=== PATIENT | female | born 1955 | race Caucasian/White ===

== ENCOUNTER 2016-11-15 17:22 | Inpatient (IN) | payer BC ==
--- NOTE | ~2016-11-15 | CO ---
Unit #: [id number] #: [id number] Patient: LOVE ISABEL [id number] [facility] [address] [place], [place] [address] [id number] I MR#: [id number] NAME: LOVE ISABEL ROOM: [facility] Age: 60 Sex: F Admission Date: 11/17/2016 : 1955 Attending Physician: Yumi Rodrigues M.D. Primary Care Physician: Lucas Ashton CONSULTATION REPORT REASON FOR CONSULTATION Followup. HISTORY OF PRESENT ILLNESS Ms. Ly is a 60-year-old female seen in room 561, bed 1 on 11/23/2016 at [facility]. The patient is sitting comfortably and reports feeling better, decreasing depression and anxiety. Denied any withdrawal from alcohol. The patient was able to eat her breakfast. She denied any suicidal or homicidal ideation. Denied any psychotic symptoms. No side effects form medication. Currently tolerating medication fairly well. The patient's vital signs are stable, 99.8, 96, 20, 106/67. Oxygen saturation 96%. MENTAL STATUS EXAMINATION General appearance, the patient is dressed casually in hospital attire. Thing built. Sitting comfortably in a chair. Attention span and concentration fair. Speech regular rate, coherent. Oriented to time, place and person. Mood and affect labile. Thought process coherent. Thought content, the patient denied any thoughts of harming self or others. No psychotic symptoms. Recent and remote memory fair. Language intact. Fund of knowledge fair. Insight and judgment fair to slightly impaired. DIAGNOSES 1. Psychiatric, major depressive disorder, recurrent, severe. 2. Alcohol use disorder, moderate to severe F10.20. ASSESSMENT/PLAN 1. Supportive psychotherapy, psychoeducation provided to the patient. 2. Educated about the benefits and side effects of the medication and course and prognosis of illness. 3. Advised to continue with current medication. If needed, consider further adjustment of medication. Please feel to call if any questions. Telephone number [phone]. Dictated by... Gavino Angelo M.D. Carlene TD: 11/24/2016 09:26 JOB #: [id number] Unit #: [id number] #: [id number] Patient: LOVE ISABEL CONSULTATION REPORT Page 1 of 1 X Gavino Angelo MD CONSULTATION REPORT
--- NOTE | ~2016-11-15 | CR94 ---
[facility] A Service of [facility] RADIOLOGY TEXT RESULTS PATIENT: LOVE ISABEL LOCATION: [place] [address] : [birth year] UNIT #: [id number] AGE: [address]: Yumi Rodrigues MD SEX: F ORDER DR: [id number] [facility] [address] [facility]. [place], [place] [address] [id number] E MR#: [id number] Acc #: [id number] NAME: LOVE ISABEL : 1955 SEX: F STUDY DATE/TIME: 11/15/2016 18:41 UNIT: LILIANE ROOM: STUDY DESCRIPTION: CR Elbow Min 3 Views Rt Attending Physician: Marcio Izaguirre D.O. Ordering Physician: Marcio Izaguirre D.O. Primary Care Physician: Lucas Ashton MEDICAL IMAGING REPORT This report is preliminary unless electronic signature is present EXAM Right elbow series, 11/15/2016 HISTORY Left and right elbow lacerations, acute pain in left forearm and right elbow. Syncope. FINDINGS AP, lateral, oblique radiographs of the right elbow show diminished bony mineralization. No fracture. No traumatic malalignment. No joint effusion. No soft tissue defect, subcutaneous air or radiodense foreign body. Dictated by... Negro Nielsen M.D. THIS IS AN ELECTRONICALLY VERIFIED REPORT Negro Nielsen M.D. at 11/16/2016 5:57 PM WINSTON/cam TD: 11/15/2016 21:51 JOB #: [id number] MEDICAL IMAGING REPORT Page 1 of 1 COPY
--- NOTE | ~2016-11-15 | CO ---
Unit #: [id number] #: [id number] Patient: ALIYAH PEPPER [id number] [facility] [address] [facility]. [place], [place] [address] [id number] I MR#: [id number] NAME: ALIYAH PEPPER. ROOM: 568 Age: 60 Sex: F Admission Date: 11/16/2016 : 1955 Attending Physician: Yumi Rodrigues M.D. Primary Care Physician: Lucas Ashton Consultation Date: 11/20/2016 CONSULTATION REPORT REASON FOR CONSULTATION Depression, confusion, and alcohol abuse. HISTORY OF PRESENT ILLNESS Ms. Aliyah Pepper is a 60-year-old white female, seen in room 568 on 11/20/2016 at [facility]. The patient was admitted on 11/16/2016 with chief complaint of alcohol use almost on a daily basis and depression. The patient was doing really well initially, alert, oriented, coherent, but in the last 24 hours from withdrawn, flat sad, dysphoric, sleepy, incoherent, confusion, unable to give any reliable information. The patient is thin built and dressed in hospital attire. The patient was not responding to any verbal commands, although able to open her eyes. The patient's abnormal was noted. The patient has been taking her medication p.o., but according to the staff report, the patient is extremely anxious, nervous. The patient is on a CIWA protocol at this time. The patient did not show any agitation or denied any thoughts of harming self or others. Did not respond to the question. The patient seemed somewhat guarded, paranoid. PAST PSYCHIATRIC HISTORY Remarkable for history of depression and history of alcohol abuse. PAST MEDICAL HISTORY History of [id number] mitral valve prolapse, hypertension, COPD, peripheral neuropathy, alcohol abuse, colon cancer, and active smoker. MEDICATIONS The patient is on Remeron, Lyrica, potassium chloride, hydrochlorothiazide, trazodone, multivitamin, and Zoloft. FAMILY HISTORY AND SOCIAL HISTORY The patient has a good support system from family. History of alcohol abuse as mentioned above. No known history of any abuse. REVIEW OF SYSTEMS Complete review of systems is unremarkable except for confusion. MENTAL STATUS EXAMINATION VITAL SIGNS: 98.9, 77, 18, 153/63, oxygen saturation 100%. GENERAL APPEARANCE: The patient dressed in hospital attire, extremely thin built. Speech, minimal. Orientation, unable to assess. Mood and affect, flat. Thought process, incoherent. Thought content, guarded and paranoid. Recent and remote memory, poor. Language, poor. Fund of knowledge, poor. Insight and judgment, impaired. Unit #: [id number] #: [id number] Patient: ALIYAH PEPPER DIAGNOSES Psychiatric: Delirium, F05; alcohol use disorder, moderate to severe, F10.20; major depressive disorder, recurrent, severe, F33.2. Secondary diagnosis: Deferred. Medical diagnosis: Please refer to H and P. Stressors: Psychosocial stressors. ASSESSMENT AND PLAN 1. Supportive psychotherapy and psychoeducation provided to the patient, but the patient unable to comprehend at this time. 2. Recommending at this time to continue with CIWA protocol and antidepressant. Recommending at this time to increase Remeron to 15 mg at bedtime and add Zyprexa 5 mg at bedtime. We will closely monitor. If needed, consider further adjustment of medication. Please feel free to call if any questions, telephone [phone]. Dictated by... Erwin Jay/sae TD: 11/21/2016 13:15 JOB #: [id number] CONSULTATION REPORT Page 1 of 1 X Gavino Angelo MD X CONSULTATION REPORT
--- NOTE | ~2016-11-15 | CR132 ---
[facility] A Service of [facility] RADIOLOGY TEXT RESULTS PATIENT: LOVE ISABEL LOCATION: [place] [address] : [birth year] UNIT #: [id number] AGE: [address]: Yumi Rodrigues MD SEX: F ORDER DR: [id number] [facility] [address] [facility]. [place], [place] [address] [id number] E MR#: [id number] Acc #: [id number] NAME: LOVE ISABEL : 1955 SEX: F STUDY DATE/TIME: 11/15/2016 18:45 UNIT: LILIANE ROOM: STUDY DESCRIPTION: CR Forearm 2 View Lt Attending Physician: Marcio Izaguirre D.O. Ordering Physician: Marcio Izaguirre D.O. Primary Care Physician: Lucas Ashton MEDICAL IMAGING REPORT This report is preliminary unless electronic signature is present EXAM Left forearm series 11/15/2016 HISTORY Left and right elbow lacerations. Acute pain left forearm, right elbow. Syncope, fall today. FINDINGS AP and lateral radiographs of the left radius and ulna are presented. Diminished bony mineralization. Greater than anticipated for patient's age. Correlate with risk factors. No fracture. No traumatic malalignment. No soft tissue defect, subcutaneous air or radiodense foreign body suggested. Dictated by... Negro Nielsen M.D. THIS IS AN ELECTRONICALLY VERIFIED REPORT Negro Nielsen M.D. at 11/16/2016 5:58 PM Felipe TD: 11/15/2016 21:43 JOB #: [id number] MEDICAL IMAGING REPORT Page 1 of 1 COPY
--- NOTE | ~2016-11-15 | CT71 ---
[facility] A Service of [facility] RADIOLOGY TEXT RESULTS PATIENT: LOVE ISABEL LOCATION: [facility] : [birth year] UNIT #: [id number] AGE: [address]: Marcio Izaguirre DO SEX: F ORDER DR: [id number] [facility] [address] [facility]. [place], [place] [address] [id number] E MR#: [id number] Acc #: [id number] NAME: LOVE ISABEL : 1955 SEX: F STUDY DATE/TIME: 11/15/2016 19:27 UNIT: [facility] ROOM: STUDY DESCRIPTION: CT Head Wo Contrast Attending Physician: Marcio Izaguirre D.O. Ordering Physician: Marcio Izaguirre D.O. Primary Care Physician: Lavelle Reddy [facility] MEDICAL IMAGING REPORT This report is preliminary unless electronic signature is present EXAM CT brain without contrast. HISTORY Headache after fall and syncope today. TECHNIQUE This CT exam was performed with one or more of the following radiation dose reduction techniques: automatic exposure control, adjustment of mA and/or kV according to patient size, and iterative reconstruction. FINDINGS CT brain without contrast demonstrates no intracranial hemorrhage, mass or edema. No midline shift or ventricular dilatation or extraaxial fluid collection. Mild generalized cerebral cortical atrophy. Moderate mucosal thickening in the left maxillary sinus and near opacification of the sphenoid sinus by mucosal thickening. Mucosal thickening in several right mastoid air cells as well. IMPRESSION 1. No acute findings. Mild generalized cerebral cortical atrophy. 2. Bilateral paranasal sinusitis most advanced in the left maxillary sinus and sphenoid sinus. Dictated by... Aldo Dempsey M.D. THIS IS AN ELECTRONICALLY VERIFIED REPORT Aldo Dempsey M.D. at 11/15/2016 11:21 PM KELLY/derrek [facility] A Service [facility] RADIOLOGY TEXT RESULTS PATIENT: LOVE ISABEL [facility]ATION: [facility] #: [id number] : [birth year] UNIT #: [id number] AGE: [address]: Marcio Izaguirre DO SEX: F ORDER DR: TD: 11/15/2016 22:04 JOB #: [id number] MEDICAL IMAGING REPORT Page 1 of 1 COPY
--- NOTE | ~2016-11-15 | CO ---
Unit #: [id number] #: [id number] Patient: LOVE ISABEL [id number] [address] [place], [place] [address] [id number] I MR#: [id number] NAME: LOVE ISABEL. ROOM: 568 Age: 60 Sex: F Admission Date: 11/16/2016 : 1955 Attending Physician: Yumi Rodrigues M.D. Primary Care Physician: Lucas Ashton CONSULTATION REPORT REASON FOR CONSULTATION Tachycardia. HISTORY OF PRESENT ILLNESS This is a 60-year-old white female, who was brought into the emergency room after a syncopal episode. The patient is sketchy on her details and is a poor historian, but thought that she "fell again." According to the records, the patient was found down on the floor by her son, who lives with her. She remembered going to the bathroom. She denied any prodromal symptoms of dizziness, chest pain, dyspnea, or palpitations. Unsure of loss of bowel or bladder. Neuro workup thus far has been negative. Her presenting electrocardiogram shows normal sinus rhythm with no acute ischemic changes. Her troponin was negative. She has risk factors for ischemic heart disease that includes hypertension and nicotine abuse. She has had no prior cardiac testing. She does admit to drinking 2 to 6 beers a day. Yesterday, the patient had elevated heart rate and mental status changes. She got up to go to the bathroom and her heart rate was up to 160 beats per minute. Med team was called. She was normotensive at that time. She was on the CIWA protocol. PAST MEDICAL HISTORY 1. A 2D echocardiogram on 11/17/2016 shows an ejection fraction equal to 55% with mild mitral regurgitation, mild tricuspid regurgitation, and right ventricular systolic pressure of 40 mmHg. Jkpd-ql-jqmbydkn mitral valve prolapse. 2. Hypertension. 3. COPD. 4. Peripheral neuropathy. 5. Daily ETOH use. 6. Colon cancer, status post colon resection and chemotherapy. 7. Active smoker. PAST SURGICAL HISTORY 1. Port placement. 2. Partial colectomy. 3. Tubal ligation. SOCIAL HISTORY The patient lives with her son. She states she smokes a few cigarettes a day. She admits to drinking 2 to 6 beers a day. Unit #: [id number] #: [id number] Patient: LOVE ISABEL FAMILY HISTORY Negative for coronary artery disease. ALLERGIES Codeine. HOME MEDICATIONS Potassium chloride 20 mEq b.i.d., Remeron 7.5 mg q.h.s., Lyrica 75 mg b.i.d., zinc sulfate 220 mg daily, hydrochlorothiazide 25 mg daily p.r.n., trazodone 50 mg q.h.s., multivitamin one tablet daily, vitamin C 500 mg daily, Zoloft 50 mg q.h.s., Megace 1 mL b.i.d., Lyrica 100 mg t.i.d., black cohosh. REVIEW OF SYSTEMS Difficult to obtain, because of the patient's slight confusion. She denies chest pain, palpitations, or dizziness. No paroxysmal nocturnal dyspnea or orthopnea. PHYSICAL EXAMINATION VITAL SIGNS: Blood pressure 188/95, heart rate 110, temperature 97.8, BMI 17. GENERAL: This is a very thin frail 60-year-old white female, who appears much older than her stated age. She is in no acute distress. NEUROLOGIC: She is awake and alert, but noted for confusion. She has generalized weakness. NECK: Trachea is midline. No thyromegaly. No lymphadenopathy. No jugular venous distention. HEART: S1 with a loud S2 with regular rate and rhythm. No murmurs, rubs, or clicks. LUNGS: Diminished breath sounds with poor inspiratory effort. No rales, rhonchi, or wheezing. ABDOMEN: Soft and nontender with bowel sounds are present. EXTREMITIES: Without leg edema. SKIN: Warm and dry. DIAGNOSTIC STUDIES LABORATORY RESULTS: Glucose 90, BUN less than 5, creatinine 0.3. Sodium 139, potassium 3.6, magnesium 1.7. TSH 2.35, free T4 is 0.87, troponin less than 0.05. White count 7.7, hemoglobin 12.5, hematocrit 39.2, platelet count is 467. IMAGING STUDIES: Chest x-ray shows no acute findings. CARDIOVASCULAR STUDIES: EKG on admission; normal sinus rhythm, rate of 81 beats per minute with a Q-wave pattern in V1 through V3. V3 has T-wave inversion. Peaked T-waves. Repeat EKG shows sinus tachycardia, rate of 101 beats per minute, otherwise normal. IMPRESSION 1. Syncope. 2. ETOH abuse. 3. Sinus tachycardia. 4. Chronic obstructive pulmonary disease with continued nicotine abuse. 5. Preserved left ventricular systolic function with ejection fraction of 55%. 6. Hypertension. Unit #: [id number] #: [id number] Patient: LOVE ISABEL PLAN 1. Cardiology was consulted for tachycardia. The patient does have an elevated heart rate, but it remains in sinus rhythm. We will start the patient on beta-kaleigh for heart rate and blood pressure control. 2. TSH is normal. 3. No significant valvular heart disease per echocardiogram. 4. We will follow the patient with you. Thank you for allowing us to assist in this patient's care. Dictated by... Ramírez Holland/sae TD: 11/18/2016 15:37 JOB #: [id number] CC: [facility] CONSULTATION REPORT Page 1 of 1 X Raj Falcon APRN CONSULTATION REPORT
--- NOTE | ~2016-11-15 | FU ---
[facility] Nutrition Therapy DATE: 11/21/16 Patient: LOVE Hwang CHALO Physician: JOLYNN Address: [address] [place] [address] ROAD Room/Bed: [address] [place] [address], Zip: [place] [address] Admit Date: 11/16/16 Date of : [birth year] Height: 5 1 Weight: 75 34.4 NUTRITION MONITORING/FOLLOW-UP: Reason: PT SEEN FOLLOW-UP DX: SYNCOPE Anthropometrics: 5'1", WT: 75# (34 KG), BMI: 14.2 -ADMIT WEIGHT: 71# Labs: BUN: <5, CREAT: 0.3, ALB: 2.7, NA+:133 Meds: KCL, PHENERGAN, PROTONIX, ASCORBIC ACID I&O's: 2870/1208. 2 BMs NOTED Skin: (PREVIOUSLY NOTED: SKIN TEARS BUE) Estimated Nutrition Needs: INCREASED NUTRIENT NEEDS 2' PT UNDERWEIGHT, PMH, CURRENT CONDITION Assessment: CHART REVIEWED AND EVENTS NOTED. PT SEEN FOR FOLLOW-UP. PT REPORTS FAIR PO INTAKE AND APPETITE, NO C/O N/V/D. PT HAD BREAKFAST TRAY IN ROOM (NOTED PT ATE 100%) AND LUNCH TRAY AT BEDSIDE (NOTED PT TOOK BITES). PT REPORTED NOT RECEIVING WHAT SHE ORDERED FOR LUNCH. RD ENCOURAGED ADEQUATE KCAL AN PROTEIN INTAKE, PT AGREED. PT REPORTS DRINKING 1-[address] ENCOURAGED PT TO DRINK SUPPLEMENY SHAKES BETWEEN MEALS. PT REPORTED NO DIET QUESTIONS AT THIS TIME. RD TO CONTINUE TO FOLLOW. Dx: UNDERWEIGHT R/T DECREASED ORAL INTAKE AEB BMI OD 13.4.-ACTIVE -PREDICTED SUBOPTIMAL ENERGY INTAKE R/T DECREASED APPETITE, DEPRESSION, CANCER AEB NOTED ~30# WEIGHT IN PAST 3 YEARS (NOTED PREVIOUSLY), UNDERWEIGHT STATUS, NEED FOR INCREASED KCAL DIET + ONS.-ACTIVE Intervention: 1. HIGH KCAL/HIGH PROTEIN DIET + NO CAFFEINE 2. ENSURE SHAKES TID Monitoring, Evaluation and Goals: 1. PO INTAKE; CONSUME >50% OF MEALS-IN PROGRESS 2. PO INTAKE; CONSUME >50% OF SUPPLEMENTS-IN PROGRESS 3. WEIGHTS; PROMOTE GRADUAL WEIGHT GAIN-IN PROGRESS 4. GI; PROMOTE REGULAR GI FUNCTION-IN PROGRESS MONITOR: -PO INTAKE/APPETITE -WEIGHTS [facility] Nutrition Therapy DATE: 11/21/16 Patient: LOVE Hwang CHALO Physician: JOLYNN Address: [address] [place] [address] Room/Bed: [address] [place] [address], Zip: [place] [address] Admit Date: 11/16/16 Date of : [birth year] Height: 5 1 Weight: 75 34.4 -SUPPLEMENT INTAKE Recommendations: 1. CONTINUE CURRENT DIET ORDER ABOVE TO PROMOTE ADEQUATE PO INTAKE 2. CONTINUE TO WEIGH q 3 DAYS FOR MONITORING PURPOSES, PT UNDERWEIGHT 3. IF PO INTAKE MINIMAL, CONSIDER AN APPETITE STIMULANT, SUCH MEGACE RD WILL F/U PER PROTOCOL PT IS MODERATELY COMPROMISED Respectfully, SINCERE CHAMPION MS, RD, LD [facility] Nutrition[facility] cc: client file
--- NOTE | ~2016-11-15 | EKG ---
PATIENT: LOVE ISABEL UNIT #: [id number] Ventricular Rate: 81 BPM Atrial Rate: 81 BPM P-R Interval: 120 ms QRS Duration: 80 ms Q-T Interval: 400 ms QTC Calculation(Bezet): 464 ms P [place]: 80 degrees Calculated R [place]: 81 degrees Calculated T [place]: 79 degrees Diagnosis Line: Normal sinus rhythm Diagnosis Line: Anterior leads appear reversed V2 and V3 Diagnosis Line: Otherwise normal ECG Diagnosis Line: No previous ECGs available Diagnosis Line: Confirmed by LINDA ZAVALA MD ([id number]) on 11/16/2016 Diagnosis Line: 6:05:47 PM INTERPRETING MD: LUCAS NICHOLE
--- NOTE | ~2016-11-15 | EKG ---
PATIENT: LOVE ISABEL UNIT #: [id number] Ventricular Rate: 98 BPM Atrial Rate: 98 BPM P-R Interval: 128 ms QRS Duration: 70 ms Q-T Interval: 354 ms QTC Calculation(Bezet): 451 ms P [place]: 77 degrees Calculated R [place]: 75 degrees Calculated T [place]: 73 degrees Diagnosis Line: Normal sinus rhythm Diagnosis Line: Cannot rule out Anterior infarct , age Diagnosis Line: undetermined Diagnosis Line: Inverted T waves have replaced nonspecific T wave Diagnosis Line: abnormality in Diagnosis Line: Abnormal ECG Diagnosis Line: Diagnosis Line: Confirmed by LINDA ZAVALA MD ([id number]) on 11/16/2016 Diagnosis Line: 6:03:33 PM INTERPRETING MD: LUCAS NICHOLE
--- NOTE | ~2016-11-15 | CO ---
Unit #: [id number] #: [id number] Patient: ALIYAH PEPPER [id number] [facility] [address]. [place], [place] [address] [id number] I MR#: [id number] NAME: ALIYAH PEPPER ROOM: [facility] Age: 60 Sex: F Admission Date: 11/16/2016 : 1955 Attending Physician: Yumi Rodrigues M.D. Primary Care Physician: Lucas Ashton Consultation Date: 11/21/2016 CONSULTATION REPORT REASON FOR CONSULTATION Followup. DISCUSSION Ms. Aliyah Pepper is a 60-year-old white female seen in room 568, bed 1 on November 21, 2016 at [facility]. Patient is thin built, dressed casually, sitting in a propped up position eating her breakfast. Patient's mom was sitting in the same room. Patient was able to make good eye contact, able to answer questions coherently. Reports feeling better, improved appetite, slept good, no side effects from medications. The patient denied any suicidal or homicidal ideation, denied any psychotic symptoms. Patient's vital signs are 98, 103, 18, 106/62, oxygen saturation 95%. REVIEW OF SYSTEMS A complete review of systems unremarkable, except as mentioned above. MENTAL STATUS EXAMINATION Vital signs: Please see above. General appearance: Patient is thin built, dressed casually, sitting in a propped up position eating her breakfast. Attention span and concentration fair. Speech regular rate, coherent. Oriented in time, place, and person. Mood and affect sad, dysphoric but made good eye contact, and able to smile. Thought process coherent. Thought content: Patient denied any thoughts of harming self or others or any psychotic symptoms. Recent and remote memory fair. Language intact. Fund of knowledge fair. Insight and judgment fair to slightly impaired. DIAGNOSES PSYCHIATRIC: Major depressive disorder, recurrent, severe, F33.0. Alcohol use disorder, severe, F10.20. ASSESSMENT AND PLAN 1. Supportive psychotherapy and psychoeducation provided to patient. 2. Educated about benefits and side effects of medication and course and prognosis of illness. 3. Advised to continue with current medication. If needed, consider further adjustment of medication. Please feel free to call if any questions, . Dictated by... Unit #: [id number] #: [id number] Patient: ALIYAH PEPPER M.D. SZC/ch TD: 11/22/2016 09:15 JOB #: [id number] CONSULTATION REPORT Page 1 of 1 X Gavino Angelo MD X CONSULTATION REPORT
--- NOTE | ~2016-11-15 | A ---
[facility] Nutrition Therapy DATE: 11/16/16 Patient: LOVE ISABEL Physician: JOLYNN Address: [address] [place] [address] ROAD Room/Bed: [address] [place] [address], Zip: [place] [phone] Admit Date: 11/16/16 Date of : [birth year] Height: 5 1 Weight: 71 32.4 NUTRITIONAL ASSESSMENT: REASON: Low BMI Admitting Dx: 60 y/o female admitted with syncope PMH (obtained from most recent H&P): ETOH abuse, depression, HTN, COPD, peripheral neuropathy, colon cancer s/p partial colectomy and chemo Anthropometrics: Ht: 61", Wt: 32.4 kg vs 42 kg, BMI: 13.4 vs 17 (underweight) 11/15 Labs: BUN < 5, Creat 0.4 Meds: Lyrica, D5, Nacl I/O & Bowel function: Last BM 11/15 Skin Integrity: Skin tears/abrasions BUE, dry all over, no edema Estimated Nutrition Needs: Increased due to underweight status, cancer, weight loss Assessment: Chart reviewed, events noted. See admitting dx and PMH as stated above. Patient is on room air, A/O x 3 with generalized weakness. Nursing/MD in patient's room and curtain is pulled at time of RD visit to room, however information is obtained from previous RD assessment on 05/31/16. The patient is clinically underweight, reports weight prior to colon cancer diagnosis was ~97 lbs. Current weights in [facility] are conflicting; 71 vs 92 lbs, but I believe she weighs 71 lbs, which would make her BMI 13.4. Her weight during the previous assessment was down to 60 lbs. Prior to that admission the patient hadn't eaten for a couple weeks due to her spouse passing away and family had reported a weight loss of 30 lbs in the past 3 years with recent loss of 10 lbs in 3 weeks. Weight appears to have increase by approx. 11 lbs since that admission (~6 months ago). Previous weight loss is reportedly due to dx of colon cancer and depression. Of note, the patient was on Megace during that admission (May 2016) but is not any longer. RD diagnosed with severe protein calorie malnutrition during that time. Wrote orders to change from healthy heart diet to HC/HP and ordered Ensure TID. Will follow-up to determine adequacy of PO intake and further nutritional needs, see recs below. Dx: 1) Underweight r/t reduced oral intake AEB BMI 13.4. 2) Predicted suboptimal energy intake r/t decreased appetite, depression, cancer AEB previously documented weight loss of 30 lbs in 3 years, underweight status, need for high calorie diet and ONS. [facility] Nutrition Therapy DATE: 11/16/16 Patient: LOVE ISABEL Physician: JOLYNN Address: [address] [place] [address] Room/Bed: [address] [place] [address], Zip: [place] [address] Admit Date: 11/16/16 Date of : [birth year] Height: 5 1 Weight: 71 32.4 Intervention: High calorie/high protein diet, Ensure TID Monitoring, Evaluation and Goals: 1. PO intake > 50% of meals. 2. PO intake > 50% supplement intake TID. 3. Gradual weight gain towards a healthy BMI range. 4. Promote regular GI function. Monitor: Per protocol, criteria to determine if above goals met Recommendations: 1. RD ordering to change to high calorie/high protein diet with Ensure Enlive TID to meet increased nutritional needs and promote weight gain. 2. Based on the patient's oral intake during this admission, she may benefit from being put back on Megace to stimulate her appetite. 3. Please weigh q 3 days for monitoring purposes, as the patient is underweight. Will follow hospital course Moderate nutrition risk Respectfully, Monique Flores RD, LD Food and Nutritional Services [facility] cc: client file
--- NOTE | ~2016-11-15 | CR72 ---
[facility] A Service of [facility] RADIOLOGY TEXT RESULTS PATIENT: LOVE ISABEL LOCATION: [facility] : [birth year] UNIT #: [id number] AGE: [address]: Marcio Izaguirre DO SEX: F ORDER DR: [id number] [facility] [address] [facility]. [place], [place] [address] [id number] MR#: [id number] #: [id number] NAME: LOVE ISABEL : 1955 SEX: F STUDY DATE/TIME: 11/15/2016 18:39 UNIT: [facility] ROOM: STUDY DESCRIPTION: CR Chest Single View Portable Attending Physician: Marcio Izaguirre D.O. Ordering Physician: Marcio Izaguirre D.O. Primary Care Physician: Lucas Ashton MEDICAL IMAGING REPORT This report is preliminary unless electronic signature is present EXAM Portable chest HISTORY Syncope today. Fell. FINDINGS Hyperinflation both lungs. Cardiac size and pulmonary vascularity are normal. Mild pleural thickening in the lung apices. Mild right thoracolumbar junction curve. Left subclavian port catheter tip is in the low SVC 2 cm above the junction SVC and right atrium. IMPRESSION No acute findings and no active disease. Dictated by... Aldo Dempsey M.D. THIS IS AN ELECTRONICALLY VERIFIED REPORT Aldo Dempsey M.D. at 11/15/2016 11:20 PM EBENEZERL/jessica TD: 11/15/2016 21:43 JOB #: [id number] MEDICAL IMAGING REPORT Page 1 of 1 COPY
--- NOTE | ~2016-11-15 | CO ---
Unit #: [id number] #: [id number] Patient: LOVE ISABEL [id number] [facility] [address] [facility]. [place], [place] [address] [id number] I MR#: [id number] NAME: LOVE ISABEL. ROOM: 568 Age: 60 Sex: F Admission Date: 11/16/2016 : 1955 Attending Physician: Yumi Rodrigues M.D. Primary Care Physician: Lucas Ashton Requesting Physician: Yumi Rodrigues M.D. Consultation Date: 11/16/2016 CONSULTATION REPORT REASON FOR CONSULTATION Syncope. PATIENT IDENTIFICATION This is a 60-year-old right-handed female evaluated in room 568 at [facility]. SOURCE OF INFORMATION Patient as well as the patient's mother at the bedside as well as from the medical record. HISTORY OF PRESENT ILLNESS This is a 60-year-old right-handed female with past medical history of COPD, tobacco use ongoing, hypertension, peripheral neuropathy, alcoholism, history of colon cancer, who presents to [facility] ER with reports of syncopal episode. The patient states that she does not really recall on the day of admission. She states that she woke up in her usual state of health. She states that she was watching TV and then remembers waking up on the kitchen floor. Her mother states that she may have fallen in the living room as well although the patient states she does not know. Apparently, her son had noted that there was some skid tierney on her arms and a small amount of blood on the fireplace in the living room. Again, she was found on the kitchen floor. She states that she woke up when EMS arrived, that she was fatigued and confused, did not really know what was going on. She states she does not know how she got there. Apparently, her son lives with her, was asleep and woke up and called 911. She denies tongue bite or incontinence. She does complain of abrasions on her elbows. She denies any headache or neck pain or injury. She denies any recent fever or chills, illness or change in routine or medications. Her mother states that she quit taking her medications in the past week. She was recently started on Lyrica but again has been not taking her medications. The patient does admit to this when her mother brings it up. The patient denies drinking more than a few beers a day though her mother states that she believes that she is drinking more than that and that she drinks throughout the day and that she is not eating very much. Otherwise review of systems regarding the event is difficult as patient does not recall what happened. She denies above-associated symptoms. She denies any increase in shortness of air, any focal weakness or paresthesias, speech or swallowing difficulty, vision changes, headache or neck pain, fever or chills, nausea, vomiting, diarrhea or abdominal pain. Head CT was done in the ER and it was negative for any acute intracranial abnormalities. It was done without contrast. It shows mild generalized cerebral cortical atrophy and bilateral paranasal sinusitis most advanced in the left maxillary sinus Unit #: [id number] #: [id number] Patient: LVOE ISABEL and sphenoid sinus. PAST MEDICAL HISTORY 1. Colon cancer, status post colectomy and chemotherapy. 2. COPD. 3. Hypertension. 4. Peripheral neuropathy. 5. Alcohol abuse. 6. Tubal ligation. 7. Malnutrition. 8. Chronic pain. 9. Depression. ALLERGIES Codeine. MEDICATIONS Include: 1. Potassium chloride 20 mEq p.o. daily. 2. Mirtazapine 7.5 mg p.o. h.s. 3. Lyrica 75 mg p.o. daily times 14 days; then, 100 mg p.o. t.i.d. 4. Zinc sulfate 220 mg p.o. daily. 5. Hydrochlorothiazide 25 mg p.o. daily p.r.n. swelling. 6. Trazodone 50 mg p.o. h.s. p.r.n. insomnia. 7. Multivitamin one tab p.o. daily. 8. Vitamin C 500 mg p.o. daily. 9. Sertraline 50 mg p.o. h.s. 10. Megace 1 mL p.o. b.i.d. 11. Black cohosh 40 mg p.o. daily. FAMILY HISTORY Noncontributory to the presenting condition. SOCIAL HISTORY The patient lives with her son. She attempts to work outside the home at [employer] but has not been able to for the last week. She has had decreased appetite. She continues to drink alcohol. She drinks on a daily basis but states that she only drinks a couple of beers. Her mother at the bedside states she drinks more than that and drinks more on a continuous basis. She denies illicit drug use. REVIEW OF SYSTEMS A 14-point review of systems was done and pertinent positives are as discussed above. PHYSICAL EXAMINATION VITAL SIGNS: Temperature 98.4, pulse 90, respirations 16, blood pressure 162/85, blood pressure in the ER on arrival was 167/109, oxygen saturation 98%. Height 5 feet 1 inch, weight pounds, BMI 17. NEUROLOGIC: patient is awake. She is alert and oriented to person and place. She is oriented to the month, the year, the day of the week. She follows simple commands. Her speech is clear. Her general fund of knowledge is intact. No aphasia, dysarthria or apraxia. She recognizes her mother at the bedside. CRANIAL NERVE EXAM: She demonstrates full lynn of vision. Eyes are conjugate without ptosis or nystagmus. Extraocular movements are intact. Sensation to the face and scalp is intact. Strength of muscles of facial expressions intact. Hearing is intact to finger rub and conversation. Unit #: [id number] #: [id number] Patient: LOVE ISABEL Tongue is midline, uvula is midline, palate elevation is normal. Head turning and shoulder shrug is unremarkable. Neck is supple. MOTOR: She demonstrates significantly decreased bulk. She has questionable tone, though with distraction she does not appear to have any abnormal tone. Questionable mild bilateral tremor in the upper extremities but appears resolved at rest. Again, no abnormal tone with distraction. Strength is equal. She is generally weak. Appears cachectic. 4+/5 to 5-/5 but no focal weakness appreciated. GAIT AND ROMBERG: Deferred. REFLEXES: Unable to elicit. Toes were equivocal. COORDINATION: Unremarkable. DIAGNOSTIC STUDIES LABORATORY: Urine toxicology screen negative. Urinalysis trace protein, negative bacteria, culture not indicated. Troponin less than 0.05. Sodium 136, potassium 4.7, chloride 98, CO2 is 22, glucose 71, BUN less than 5, creatinine 0.4, estimated GFR 114, calcium 8.6, AST 54, ALT 28, alkaline phosphatase 100, total protein 7.8, albumin 3.7. Repeat troponin less than 0.05. PT 10.2, INR 1.0. CBC unremarkable other than a platelet count of 542, RDW 20.6. IMAGING: Chest x-ray from 11/15/2016 negative per radiology report. CARDIOVASCULAR: EKG shows normal sinus rhythm per Cardiology report. IMPRESSION 1. Episode of syncope. Consider alcoholic blackout versus other etiology. Cannot rule out seizure. 2. Recent medication noncompliance including her Lyrica. 3. Elevated platelet count. 4. History of colon cancer. 5. Alcoholism. 6. Severe malnutrition. PLAN Patient had a single event, EEG is pending. She has no focal exam findings and head CT is unremarkable. At this time, nothing to suggest recommendation for MR imaging unless EEG is abnormal as she has no focal findings on her neurologic exam. Event is very nonspecific but definitely concerning and cannot rule out seizure activity. She has had no further events here. She has been started on Lyrica but has not been taking it for the past week. Lyrica is a good medication for seizures as well as neuropathy pain and recommend that we restart that. Dr. Quispe has recommended restarting it 100 mg p.o. b.i.d. and we have done so. The patient admits noncompliance with all medications and appears quite depressed; however, denies any suicidal ideations. The mother states she continues to drink frequently and we have recommended cessation and treatment for that. I discussed with Dr. Quispe and he agrees with the above. We will follow along with you. Further recommendations will be made pending workup and further clinical course. If EEG is abnormal, will recommend MR imaging of the brain but again neurologic exam is nonfocal at this time. If further events or neurologic changes, recommend outpatient MRI of the brain especially considering her history of malignancy. Please call for any questions or issues. We thank you very much for allowing us to assist in the care of this Unit #: [id number] #: [id number] Patient: LOVE ISABEL patient. Dictated by... Tiana Mao A.P.R.N. for Erwin Sauer/esther TD: 11/17/2016 15:30 JOB #: [id number] CONSULTATION REPORT Page 1 of 1 X Tiana Mao APRN CONSULTATION REPORT
--- NOTE | ~2016-11-15 | DS ---
Unit #: [id number] #: [id number] Patient: LOVE ISABEL [id number] [address] [place], [place] [address] [id number] I MR#: [id number] NAME: LOVE ISABEL ROOM: 568 Age: 60 Sex: F Admission Date: 11/16/2016 : 1955 Discharge Date: 11/23/2016 Attending Physician: Yumi Rodrigues M.D. Primary Care Physician: Lavelle Reddy, Lucas DISCHARGE SUMMARY DISCHARGE DIAGNOSES 1. Syncope status post negative workup, status post cardiology evaluation. Stable to be discharged per Cardiology. Cardiology signed off. 2. Altered mental status, status post negative CT of the head. Mental status back to normal. Stable for discharge. 3. Chronic obstructive pulmonary disease at baseline, stable. 4. Alcohol abuse. Patient was maintained on CIWA protocol. Was counseled on the importance of quitting alcohol habits on several occasions on this hospitalization. 5. History of colon cancer in the past. 6. Anemia of chronic disease, stable. Last hemoglobin and hematocrit, which were drawn on 11/22/2016, are stable at hemoglobin 10.1 and hematocrit 31.4. DIAGNOSTIC STUDIES 1. Chest x-ray on admission shows no acute findings, no active findings. 2. Elbow x-ray on the right showed no fracture, no traumatic malalignment, no joint effusion, no soft tissue swelling. 3. Forearm x-ray on the left showed no fracture, unremarkable. 4. CT of the head on admission on 11/15/2016 showed no acute findings. 5. Repeat CT of the head on 11/17/2016 also without any acute findings. Showed mild generalized cerebral cortical atrophy and mild chronic ischemic changes in the deep white matter bilaterally. CONSULTANTS 1. Dr. Angelo, psychiatry. 2. Dr. Billy, cardiology. 3. Dr. Quispe, neurology. HISTORY Please refer to the History and Physical done by me for initial presentation on this female. HOSPITAL COURSE Syncope, status post negative workup, status post cardiology evaluation. Stable per Cardiology to be discharged. No more syncopal episodes. Altered mental status. Again, resolved to baseline mental status, status post negative CT of the head. Status post neurology evaluation. COPD, stable, at the baseline. Alcohol abuse, as above. Counseled on the importance of quitting. She Unit #: [id number] #: [id number] Patient: LOVE ISABEL was maintained on CIWA. No signs of active withdrawal. History of colon cancer in the past. Anemia of chronic disease, stable, as above. DISCHARGE MEDICATIONS 1. Combivent inhaler q.6 h. p.r.n. for shortness of air. 2. Lyrica 100 mg b.i.d. 3. Remeron 15 mg h.s. 4. Zoloft 50 mg h.s. 5. Desyrel 50 mg one or two tablets p.o. h.s. p.r.n. for insomnia. 6. Phenergan 12.5 mg p.r.n. for nausea. 7. Megace b.i.d. 8. Hydrochlorothiazide 12.5 mg one or two tablets p.o. daily p.r.n. for lower extremity swelling. 9. Zinc oxide 220 mg daily. 10. Multivitamins daily. 11. Zyprexa 5 mg h.s. 12. Protonix 40 mg daily. 13. Klor-Con 20 mEq p.o. b.i.d. 14. Ascorbic acid 500 mg p.o. daily. DISPOSITION Patient is being discharged to subacute rehab. FOLLOWUP 1. With Dr. Rodrigues at the rehab. 2. Outpatient followup with Cardiology p.r.n. and Neurology p.r.n. Dictated by... Isauro Reid M.D. OC/esther TD: 11/23/2016 20:43 JOB #: [id number] DISCHARGE SUMMARY Page 1 of 1 X Isauro Reid MD X DISCHARGE SUMMARY
--- NOTE | ~2016-11-15 | CT72 ---
[facility] A Service [facility] RADIOLOGY TEXT RESULTS PATIENT: LOVE ISABEL LOCATION: [facility] : 57 UNIT #: [id number] AGE: [address]: Yumi Rodrigues MD SEX: F ORDER DR: [id number] [facility] [address]. [place], [place] [address] [id number] I MR#: [id number] Acc #: [id number] NAME: LOVE ISABEL : 1955 SEX: F STUDY DATE/TIME: 11/17/2016 19:29 UNIT: [facility] ROOM: [facility] STUDY DESCRIPTION: CT Head Wo Contrast Stroke Attending Physician: Yumi Rodrigues M.D. Ordering Physician: Yumi Rodrigues M.D. Primary Care Physician: Lucas Ashton MEDICAL IMAGING REPORT This report is preliminary unless electronic signature is present EXAM CT brain without contrast HISTORY Syncope today. Confusion, memory loss. FINDINGS This CT exam was performed with one or more of the following radiation dose reduction techniques: automatic control, adjustment of mA and/or kV according to patient size, and iterative reconstruction. CT brain without contrast demonstrates no intracranial hemorrhage, mass or edema. No midline shift or ventricular dilatation or extraaxial fluid collection. Mild chronic ischemic changes in the deep white matter bilaterally. Mild generalized cerebral and cerebellar cortical atrophy. Moderate mucosal thickening in the left maxillary sinus and near-complete opacification of the left sphenoid sinus and mild mucosal thickening in the right sphenoid sinus. Opacification of several right mastoid air cells. IMPRESSION 1. No acute findings. No change compared to 11/15/2016. 2. Mild generalized cerebral cortical atrophy and mild chronic ischemic changes in the deep white matter bilaterally. 3. Left sphenoid sinus near-complete opacification and moderate mucosal thickening in the partly visualized left maxillary sinus. Dictated by... Aldo Dempsey M.D. [facility] A Service [facility] RADIOLOGY TEXT RESULTS PATIENT: LOVE ISABEL LOCATION: [facility] : 57 UNIT #: [id number] AGE: [address]: Yumi Rodrigues MD SEX: F ORDER DR: THIS IS AN ELECTRONICALLY VERIFIED REPORT Aldo Dempsey M.D. at 11/25/2016 10:42 PM KELLY/zari TD: 11/18/2016 01:16 JOB #: [id number] MEDICAL IMAGING REPORT Page 1 of 1 COPY
--- NOTE | ~2016-11-15 | EE ---
Unit #: [id number] #: [id number] Patient: LOVE ISABEL [id number] [address] [address] [id number] I MR#: [id number] NAME: LOVE ISABEL. : 1955 SEX: F STUDY DATE/TIME: 11/16/2016 UNIT: [facility] ROOM: 568 STUDY DESCRIPTION: EEG Attending Physician: Yumi Rodrigues M.D. Referring Physician: Addis Quispe M.D. Primary Care Physician: Lucas Ashton NEURODIAGNOSTICS REPORT PROCEDURE PERFORMED EEG. REASON FOR STUDY Syncope. EEG DESCRIPTION This is an inpatient, digitally recorded, multi-montage, adult EEG with leads placed according to the International 10-20 system. Hyperventilation was not done, but photic stimulation was attempted. PROCEDURE REPORT This EEG shows 8.5 Hz posterior background. The patient did become drowsy, and later on alpha dropout was seen, but I did not see any good deeper stages of sleep. No clearcut seizure or interictal discharges or clinical events. Hyperventilation was not done. Photic stimulation was attempted in intermittent stepwise pattern up to flash frequency of 30 Hz, but I did not see any driving, asymmetry or paroxysmal activity. IMPRESSION This is likely a normal adult, awake and drowsy EEG. An EEG like this does not rule out epilepsy. Clinical correlation is recommended. Dictated by... Erwin Sauer/gema TD: 11/17/2016 17:20 JOB #: [id number] Unit #: [id number] #: [id number] Patient: LOVE ISABEL NEURODIAGNOSTICS REPORT Page 1 of 1 X Addis Quispe MD NEURODIAGNOSTICS REPORT
--- NOTE | ~2016-11-15 | HP ---
Unit #: [id number] #: [id number] Patient: OLVE PEPPER [id number] [address] [address] [id number] MR#: [id number] NAME: LOVE PEPPER. ROOM: [facility] Age: 60 Sex: F Admission Date: 11/16/2016 : 1955 Attending Physician: Yumi Rodrigues M.D. Primary Care Physician: Lucas Ashton HISTORY AND PHYSICAL ADMISSION DIAGNOSES 1. Syncope. 2. Alcohol use almost daily basis. 3. Chronic obstructive pulmonary disease. 4. Tobacco use. 5. History of colon cancer, status post resection. 6. Depression. HISTORY OF PRESENT ILLNESS Ms. Pepper is a 60-year-old female with the past medical history of COPD, continues tobacco use, hypertension, peripheral neuropathy, history of colon cancer, status post resection with partial colectomy, who presents to the emergency room with the complaints of syncopal episode. She tells me that she was found in the kitchen down on the floor by her son. The last thing she remembers she was going to the restroom. She tells me that she was confused when she was found and was brought to the emergency room. The patient denies any fever, chills, denies any previous syncopal episodes, denies any chest pain, denies any increase in shortness of air or dyspnea, denies any nausea, vomiting, diarrhea, or abdominal pain. PAST MEDICAL HISTORY Significant for: 1. History of colon cancer. 2. COPD. 3. Hypertension. 4. Peripheral neuropathy. PAST SURGICAL HISTORY Significant for: 1. Partial colectomy. 2. Port placement for chemotherapy for colon cancer. 3. Tubal ligation. HOME MEDICATIONS 1. Klor-Con. 2. Remeron. 3. Lyrica. 4. Zinc sulfate. 5. Hydrochlorothiazide. 6. Desyrel. 7. Multivitamins. 8. Vitamin C. 9. Sertraline. Unit #: [id number] #: [id number] Patient: LOVE PEPPER 10. Megace. 11. Black cohosh. ALLERGIES Codeine. SOCIAL HISTORY Unfortunately, she continues to smoke and has been a lifetime smoker. Denies any illicit drug use. Admits to drinking almost on a daily basis with the beer, the last drink a couple of days ago. FAMILY HISTORY Unremarkable. PHYSICAL EXAMINATION VITAL SIGNS: BP 165/94, heart rate 52, respirations 16, temperature 981. GENERAL: The patient is a very thin, almost cachectic 60-year-old female, otherwise not in no acute distress. HEENT: Head is atraumatic. Pupils equal, round, reactive to light and accommodation. Extraocular muscles are intact. Oropharynx is clear. NECK: Supple. No mass, no JVD, no bruits. LUNGS: Diminished bilaterally with some expiratory wheezing. HEART: S1, S2. No murmurs. ABDOMEN: Soft, nontender, nondistended. LOWER EXTREMITIES: Without any cyanosis, clubbing, or edema. NEUROLOGIC: Patient without any focal deficits. Alert and oriented and answering questions appropriately. DIAGNOSTIC STUDIES LABORATORY: CBC, chemistry, serial cardiac enzymes, and coagulation panel unremarkable. Alcohol level was not tested. IMAGING: Chest x-ray no active disease. X-ray of elbow without any acute findings. X-ray of forearm without any fractures. CT of the head shows no acute findings. Mild generalized cerebral cortical atrophy. ASSESSMENT AND PLAN 1. Syncopal episode status post evaluation per Neurology, status post negative CT. Monitor closely. Will get the 2D echo as part of the workup. Continue per Neurology. 2. Daily alcohol use. Questionable syncope secondary to alcoholic intoxication. Again, there was no alcohol level in the initial ER presentation. I will put her on the CIWA protocol. Counseled on the importance of quitting. 3. COPD with continuous tobacco use. Start on DuoNeb. Will ask pulmonary, Dr. Ocasio, had been seeing her previously. Counseled on the importance of quitting tobacco. will defer to Dr. Ocasio. 4. History of colon cancer, status post partial colectomy. 5. Depression. Continue home medications. 6. Peripheral neuropathy. She was on too much Lyrica. Will stop the Lyrica 100 mg q.i.d. 7. GI and DVT prophylaxis. Start her on some Protonix and Lovenox. Unit #: [id number] #: [id number] Patient: LOVE PEPPER Dictated by Isauro Reid M.D. OC/cs TD: 11/16/2016 17:48 JOB #: [id number] HISTORY AND PHYSICAL Page 1 of 1 X Isauro Reid MD HISTORY AND PHYSICAL
--- NOTE | ~2016-11-15 | EKG ---
PATIENT: LOVE ISABEL UNIT #: [id number] Ventricular Rate: 101 BPM Atrial Rate: 101 BPM P-R Interval: 128 ms QRS Duration: 68 ms Q-T Interval: 372 ms QTC Calculation(Bezet): 482 ms P [place]: 75 degrees Calculated R [place]: 77 degrees Calculated T [place]: 65 degrees Diagnosis Line: Sinus tachycardia Diagnosis Line: Nonspecific ST abnormality Diagnosis Line: Abnormal ECG Diagnosis Line: When compared with ECG of 15-NOV-2016 23:32, Diagnosis Line: Nonspecific T wave abnormality, worse in Anterior Diagnosis Line: leads Diagnosis Line: Confirmed by BALA DIOP MD ([id number]) on Diagnosis Line: 11/21/2016 5:14:18 PM INTERPRETING : WILLIAM
[~2016-11-15 17:22] MED LIST: NISOLDIPINE17 MG PO; NO MEDICATIONS; VITAMIN D2000 UNI1 PO
[2016-11-15 18:47] LABS: BASOPHIL# 0.1 X10e3 (0-0.3); BASOPHIL% 1.1 % (0-2.5); EOSINOPHIL% 0.2 % (0.0-7.0); HEMATOCRIT 38.5 % (35.0-45.0); HEMOGLOBIN 12.6 gm/dL (12.0-16.0); LYMPHOCYTE# 1.4 X10e3 (1.0-3.5); LYMPHOCYTE% 21.4 % (17.0-45.0); MEAN CELL VOLUME 87.6 FL (83-96); MEAN CORPUSCULAR HEMOGLOBIN 28.6 PG (28-34); MEAN CORPUSCULAR HGB CONC 32.6 g/dL (30-36); MEAN PLATELET VOLUME 6.9 FL (6.5-11.5); MONOCYTE# 0.3 X10e3 (0-1.0); MONOCYTE% 5.1 % (3.0-12.0); NEUTROPHIL# 4.9 X10e3 (1.5-7.1); NEUTROPHIL% 72.2 % (40-75); PLATELET COUNT 542 X10e3 (140-420); RED BLOOD COUNT 4.39 X10e (3.90-5.30); RED CELL DISTRIBUTION WIDTH 20.6 % (11.0-15.5); WHITE BLOOD COUNT 6.8 X10e3 (4.0-10.5)
[2016-11-15 18:48] LABS: DIFF IND NO
[2016-11-15 19:02] LABS: PARTIAL THROMBOPLASTIN TIME 27.7 SECONDS (23.5-31.3); PROTHROMBIN TIME (PATIENT) 10.2 SECONDS (9.6-11.5)
[2016-11-15 19:22] LABS: POC - CKMB <1.0 ng/mL (0.0-7.9); POC - TROPONIN <0.05 ng/mL (<=0.05)
[2016-11-15 19:46] LABS: ALBUMIN SERUM 3.7 g/dL (3.5-5.0); ALKALINE PHOSPHATASE 100 U/L (32-92); ALT (SGPT) 28 U/L (10-40); AST (SGOT) 54 U/L (10-42); BILIRUBIN, DIRECT 0.1 mg/dL (0.0-0.2); BILIRUBIN,INDIRECT 0.2 mg/dL (0.0-0.9); BILIRUBIN,TOTAL 0.3 mg/dL (0.2-2.0); BLOOD UREA NITROGEN <5 mg/dL (9-23); CALCIUM SERUM 8.6 mg/dL (8.4-10.2); CARBON DIOXIDE 22 mmol/L (22-31); CHLORIDE 98 mmol/L (100-111); CREATININE SERUM 0.4 mg/dL (0.6-1.4); GLUCOSE FASTING 71 mg/dL (70-110); POTASSIUM 4.7 mmol/L (3.5-5.1); PROTEIN TOTAL SERUM 7.8 g/dL (6.0-8.3); SODIUM 136 mmol/L (135-145)
[2016-11-15 21:54] LABS: POC - TROPONIN <0.05 ng/mL (<=0.05)
[2016-11-15 22:33] LABS: URINE SOURCE CLEAN CATCH
[2016-11-15 22:42] LABS: URBCS1 AUWI 0-2 /[HPF] (0-2); URINE APPEARANCE CLEAR; URINE BACTERIA AUWI NEG (NEGATIVE); URINE BILIRUBIN NEG (NEG); URINE BLOOD TRACE (NEG); URINE COLOR YELLOW; URINE GLUCOSE NEG (NEG); URINE KETONE 2+ (NEG); URINE LEUKOCYTE ESTERASE NEG (NEG); URINE NITRATE NEG (NEG); URINE PH 5.5 (5-8); URINE PROTEIN TRACE (NEG); URINE SPECIFIC GRAVITY 1.009 (1.003-1.035); URINE SQUAMOUS EPITHELIAL CELL NONE SEEN /[HPF]; URINE UROBILINOGEN 0.2 MG/DL (NEG); UWBCS1 AUWI 0-2 (0-5)
[2016-11-15 22:44] LABS: CULTURE INDICATED? NO
[2016-11-15 22:47] LABS: AMPHETAMINE NEG (NEG); BARBITURATES NEG (NEG); BENZODIAZEPINES NEG (NEG); COCAINE NEG (NEG); MARIJUANA NEG (NEG); OPIATES NEG (NEG); TRICYCLIC ANTIDEPRESSANTS NEG (NEG); U METHADONE NEG (NEG)
[2016-11-16] MEDS ORDERED: KLOR-CON PO (10:55)
[2016-11-16] MEDS ORDERED: MIRTAZAPINE7.5 MG PO (10:56)
[2016-11-16] MEDS ORDERED: ZINC SULFATE220 M1 PO (10:56)
[2016-11-16] MEDS ORDERED: LYRICA75 MG PO (10:56)
[2016-11-16] MEDS ORDERED: HYDROCHLOROTHIA25 MG PO (10:57)
[2016-11-16] MEDS ORDERED: DESYREL50 MG PO (10:58)
[2016-11-16] MEDS ORDERED: MULTIVITAMINS1 EAC3 PO (10:58)
[2016-11-16] MEDS ORDERED: VITAMIN C500 MG PO (10:59)
[2016-11-16] MEDS ORDERED: MEGACE ORA40 MG/ML S PO (10:59)
[2016-11-16] MEDS ORDERED: SERTRALINE HCL50 M1 PO (10:59)
[2016-11-16] MEDS ORDERED: LYRICA100 MG PO (11:00)
[2016-11-16] MEDS ORDERED: BLACK COHOSH40 M1 PO (11:01)
[2016-11-16 18:51] LABS: ALBUMIN SERUM 3.1 g/dL (3.5-5.0); ALKALINE PHOSPHATASE 83 U/L (32-92); ALT (SGPT) 23 U/L (10-40); AST (SGOT) 42 U/L (10-42); BILIRUBIN,TOTAL 1.3 mg/dL (0.2-2.0); CALCIUM SERUM 8.1 mg/dL (8.4-10.2); CARBON DIOXIDE 23 mmol/L (22-31); CHLORIDE 93 mmol/L (100-111); CREATININE SERUM 0.4 mg/dL (0.6-1.4); GLUCOSE FASTING 159 mg/dL (70-110); POTASSIUM 3.6 mmol/L (3.5-5.1); PROTEIN TOTAL SERUM 6.5 g/dL (6.0-8.3); SODIUM 127 mmol/L (135-145)
[2016-11-16 18:53] LABS: BLOOD UREA NITROGEN <5 mg/dL (9-23)
[2016-11-16 19:01] LABS: THYROID STIMULATING HORMONE 2.35 uIU/ml (0.34-5.60)
[2016-11-16 19:08] LABS: FREE THYROXIN (T4) 0.87 ng/dL (0.58-1.64)
[2016-11-17 06:28] LABS: HEMATOCRIT 33.5 % (35.0-45.0); HEMOGLOBIN 10.9 gm/dL (12.0-16.0); MEAN CELL VOLUME 86.4 FL (83-96); MEAN CORPUSCULAR HEMOGLOBIN 28.2 PG (28-34); MEAN CORPUSCULAR HGB CONC 32.6 g/dL (30-36); MEAN PLATELET VOLUME 7.7 FL (6.5-11.5); RED BLOOD COUNT 3.87 X10e (3.90-5.30); RED CELL DISTRIBUTION WIDTH 20.2 % (11.0-15.5); WHITE BLOOD COUNT 5.9 X10e3 (4.0-10.5)
[2016-11-17 07:01] LABS: BLOOD UREA NITROGEN <5 mg/dL (9-23); CALCIUM SERUM 8.3 mg/dL (8.4-10.2); CARBON DIOXIDE 25 mmol/L (22-31); CHLORIDE 100 mmol/L (100-111); CREATININE SERUM 0.4 mg/dL (0.6-1.4); GLUCOSE FASTING 101 mg/dL (70-110); POTASSIUM 3.4 mmol/L (3.5-5.1); SODIUM 134 mmol/L (135-145)
[2016-11-17 19:22] LABS: HEMATOCRIT 33.2 % (35.0-45.0); HEMOGLOBIN 10.8 gm/dL (12.0-16.0); MEAN CELL VOLUME 87.9 FL (83-96); MEAN CORPUSCULAR HEMOGLOBIN 28.5 PG (28-34); MEAN CORPUSCULAR HGB CONC 32.4 g/dL (30-36); MEAN PLATELET VOLUME 7.5 FL (6.5-11.5); RED BLOOD COUNT 3.78 X10e (3.90-5.30); RED CELL DISTRIBUTION WIDTH 20.3 % (11.0-15.5); WHITE BLOOD COUNT 7.4 X10e3 (4.0-10.5)
[2016-11-17 19:41] LABS: ALBUMIN SERUM 2.7 g/dL (3.5-5.0); BILIRUBIN,TOTAL 0.7 mg/dL (0.2-2.0); BUN/CREATININE RATIO 12.5; CALCIUM SERUM 8.2 mg/dL (8.4-10.2); CREATININE SERUM 0.4 mg/dL (0.6-1.4); MAGNESIUM 1.4 mg/dL (1.6-3.0); POTASSIUM 3.2 mmol/L (3.5-5.1); PROTEIN TOTAL SERUM 5.7 g/dL (6.0-8.3)
[2016-11-18 05:56] LABS: HEMATOCRIT 39.2 % (35.0-45.0); HEMOGLOBIN 12.5 gm/dL (12.0-16.0); MEAN CELL VOLUME 88.5 FL (83-96); MEAN CORPUSCULAR HEMOGLOBIN 28.2 PG (28-34); MEAN CORPUSCULAR HGB CONC 31.9 g/dL (30-36); RED BLOOD COUNT 4.43 X10e (3.90-5.30); RED CELL DISTRIBUTION WIDTH 20.6 % (11.0-15.5); WHITE BLOOD COUNT 7.7 X10e3 (4.0-10.5)
[2016-11-18 06:29] LABS: BLOOD UREA NITROGEN <5 mg/dL (9-23); BUN/CREATININE RATIO 16.66; CARBON DIOXIDE 25 mmol/L (22-31); CHLORIDE 104 mmol/L (100-111); CREATININE SERUM 0.3 mg/dL (0.6-1.4); GLOM FILT RATE Estimated 125.4 mL/min (>60); GLUCOSE FASTING 90 mg/dL (70-110); MAGNESIUM 1.7 mg/dL (1.6-3.0); POTASSIUM 3.6 mmol/L (3.5-5.1); SODIUM 139 mmol/L (135-145)
[2016-11-19 11:55] LABS: HEMATOCRIT 37.5 % (35.0-45.0); MEAN CORPUSCULAR HEMOGLOBIN 28.5 PG (28-34); MEAN PLATELET VOLUME 7.9 FL (6.5-11.5); RED BLOOD COUNT 4.22 X10e (3.90-5.30); RED CELL DISTRIBUTION WIDTH 20.2 % (11.0-15.5); WHITE BLOOD COUNT 10.9 X10e3 (4.0-10.5)
[2016-11-19 12:33] LABS: BLOOD UREA NITROGEN <5 mg/dL (9-23); BUN/CREATININE RATIO 16.66; CALCIUM SERUM 8.7 mg/dL (8.4-10.2); CARBON DIOXIDE 22 mmol/L (22-31); CHLORIDE 105 mmol/L (100-111); CREATININE SERUM 0.3 mg/dL (0.6-1.4); GLOM FILT RATE Estimated 125.4 mL/min (>60); GLUCOSE FASTING 98 mg/dL (70-110); MAGNESIUM 1.6 mg/dL (1.6-3.0); POTASSIUM 4.1 mmol/L (3.5-5.1); SODIUM 133 mmol/L (135-145)
[2016-11-21 09:30] LABS: MAGNESIUM 2.1 mg/dL (1.6-3.0); POTASSIUM 4.8 mmol/L (3.5-5.1)
[2016-11-22 05:29] LABS: HEMATOCRIT 31.4 % (35.0-45.0); HEMOGLOBIN 10.1 gm/dL (12.0-16.0); MEAN CELL VOLUME 88.4 FL (83-96); MEAN CORPUSCULAR HEMOGLOBIN 28.4 PG (28-34); MEAN CORPUSCULAR HGB CONC 32.1 g/dL (30-36); MEAN PLATELET VOLUME 8.3 FL (6.5-11.5); RED BLOOD COUNT 3.55 X10e (3.90-5.30); RED CELL DISTRIBUTION WIDTH 21.4 % (11.0-15.5); WHITE BLOOD COUNT 6.9 X10e3 (4.0-10.5)
[2016-11-22 06:12] LABS: BUN/CREATININE RATIO 17.5; CALCIUM SERUM 8.7 mg/dL (8.4-10.2); CREATININE SERUM 0.4 mg/dL (0.6-1.4); POTASSIUM 4.1 mmol/L (3.5-5.1)
[2016-11-23 08:18] LABS: MAGNESIUM 1.9 mg/dL (1.6-3.0); POTASSIUM 4.3 mmol/L (3.5-5.1)
== END 2016-11-23 22:45 | DRG 312 ==
LOC: CED 17:22 → CEDOF 11-16 01:23 → CED 11-16 01:23 → C5C 11-16 01:23 → CEDOF 11-16 01:23 → C5C 11-16 02:57 → CEDOF 11-16 02:57 → C5C 11-17 12:00
PROVIDERS: Emergency Medicine; Hospitalist; Internal Medicine; Physician Assistant Medical
PROC: B246YZZ Ultrasonography of Right and Left Heart using Other Contrast (ICD-10-PCS; principal; 2016-11-17)
DX: R55 Syncope and collapse (principal); E43 Unspecified severe protein-calorie malnutrition; F33.9 Major depressive disorder, recurrent, unspecified; D63.8 Anemia in other chronic diseases classified elsewhere; F10.20 Alcohol dependence, uncomplicated; I10 Essential (primary) hypertension; G62.9 Polyneuropathy, unspecified; Z85.038 Personal history of other malignant neoplasm of large intestine; Z92.21 Personal history of antineoplastic chemotherapy; G89.29 Other chronic pain; Z88.8 Allergy status to other drugs, medicaments and biological substances; R00.0 Tachycardia, unspecified; Z71.41 Alcohol abuse counseling and surveillance of alcoholic; Z71.6 Tobacco abuse counseling; R41.82 Altered mental status, unspecified; F17.210 Nicotine dependence, cigarettes, uncomplicated
CPT/HCPCS: 70450; 71010; 73080; 73090; 80048; 80053; 80076; 80307; 81003; 82553; 82947; 83735; 84132; 84439; 84443; 84484; 85025; 85027; 85610; 85730; 86592; 90715; 93005; 93306; 94640; 94760; 95816; 96360; 97110; 97116; 97162; 97167; 97530; 97535; 99285; J1650; J3411; J3475; J7042